=== PATIENT | female | born 1970 | race Caucasian/White ===

== ENCOUNTER 2021-10-17 15:51 | Emergency (ER) | payer OTHER, SELFPAY ==
[2021-10-17] MEDS ORDERED: ACETAMINOPHEN 500 MG TAB ONE (17:05)
--- NOTE | 2021-10-17 17:39 | RAD REPORT ---
EXAM DESCRIPTION: RAD - Elbow Right 3 View - 10/17/2021 5:28 pm CLINICAL HISTORY: PAIN COMPARISON: Wrist Right 3 View dated 10/17/2021 FINDINGS: No acute fracture or dislocation is seen.
--- NOTE | 2021-10-17 17:39 | RAD REPORT ---
EXAM DESCRIPTION: RAD - Wrist Right 3 View - 10/17/2021 5:27 pm CLINICAL HISTORY: PAIN Pain COMPARISON: No comparisons FINDINGS: No acute fracture or dislocation is seen.
--- NOTE | 2021-10-17 17:46 | ER ---
Nurse's Notes [facility] Name: Sally Knox Age: 51 yrs Sex: Female : 1970 Arrival Date: 10/17/2021 Time: 15:58 Bed DIS2 Private MD: Diagnosis: Sprain of other part of wrist and hand;Other sprain of right elbow Presentation: 10/17 16:03 Chief complaint: Patient states: tripped over cracks in this parking lot about 20 min jh5 ago and attempted to catch herself with right wrist. mild deformity at right wrist, pt complains of pain all the way up the arm. Pulses intact. Coronavirus screen: Vaccine status: Patient reports receiving the 2nd dose of the covid vaccine. Client denies travel out of the [place] in the last 14 days. Ebola Screen: Patient negative for fever greater than or equal to 101.5 degrees Fahrenheit, and additional compatible Ebola Virus Disease symptoms Patient denies exposure to infectious person. Patient denies travel to an Ebola-affected area in the 21 days before illness onset. Initial Sepsis Screen: Does the patient meet any 2 criteria? No. Patient's initial sepsis screen is negative. Does the patient have a suspected source of infection? No. Patient's initial sepsis screen is negative. Risk Assessment: Do you want to hurt yourself or someone else? Patient reports no desire to harm self or others. Onset of symptoms was October 17, 2021 at 16:08. 16:03 Method Of Arrival: Ambulatory [facility] 16:03 Acuity: TONIO 3 jh5 Triage Assessment: 16:09 General: Appears in no apparent distress. uncomfortable, slender, well groomed, well jh5 developed, well nourished, Behavior is calm, cooperative, appropriate for age. Pain: Complains of pain in right hand and right arm Pain radiates to right arm Pain currently is 10 out of 10 on a pain scale. Historical: - Allergies: 16:08 PENICILLINS; jh5 16:08 Sulfa (Sulfonamide Antibiotics); jh5 16:08 Codeine; jh5 16:08 Oxycodone; jh5 - Immunization history:: Adult Immunizations up to date. - Social history:: Smoking status: Patient/guardian denies using tobacco, but has a distant history of tobacco abuse. Screenin:10 Abuse screen: Denies threats or abuse. Denies injuries from another. Nutritional 5 screening: No deficits noted. Tuberculosis screening: No symptoms or risk factors identified. Fall Risk Fall in past 12 months (25 points). Assessment: 17:00 General: Appears in no apparent distress. comfortable, Behavior is calm, cooperative. ss Pain: Complains of pain in right wrist and right elbow Pain currently is 10 out of 10 on a pain scale. Quality of pain is described as aching, tender, Is continuous. Neuro: Level of Consciousness is awake, alert, obeys commands, Oriented to person, place, time, situation. Cardiovascular: Pulses are palpable in right radial artery and left radial artery. Respiratory: Airway is patent Respiratory effort is even, unlabored, Respiratory pattern is regular, symmetrical. GI: No signs and/or symptoms were reported involving the gastrointestinal system. : No signs and/or symptoms were reported regarding the genitourinary system. EENT: Oral mucosa is moist. Derm: Skin is intact, is healthy with good turgor, Skin is dry, Skin is pink, warm \T\ dry. normal. Musculoskeletal: Circulation, motion, and sensation intact. Range of motion: intact in all extremities, Swelling absent. 17:57 Reassessment: Patient appears in no apparent distress at this time. Patient and/or ss family updated on plan of care and expected duration. Pain level reassessed. Patient is alert, oriented x 3, equal unlabored respirations, skin warm/dry/pink. sling applied to R arm. Vital Signs: 16:03 BP 125 / 75; Pulse 80; Resp 16; Temp 97.6; Pulse Ox 98% ; Weight 58.06 kg; Height 5 ft. jh5 1 in. (154.94 cm); Pain 10/10; 16:03 Body Mass Index 24.19 (58.06 kg, 154.94 cm) 5 ED Course: 15:58 Patient arrived in ED. ds1 16:08 Triage completed. jh5 16:20 Torin Fraga PA is PHCP. jr8 16:20 Gary Alejo MD is Attending Physician. jr8 17:24 X-ray(s) taken. jh6 17:26 Wrist Right 3 View XRAY In Process Unspecified. EDMS 17:26 Elbow Right 3 View XRAY In Process Unspecified. EDMS 17:44 Hardik Soto MD is Referral Physician. jr8 17:46 Bee Otero, RN is Primary Nurse. ss 17:57 No provider procedures requiring assistance completed. Patient did not have IV access ss during this emergency room visit. Sling applied to right arm. 17:57 Patient has correct armband on for positive identification. Bed in low position. ss Administered Medications: 17:07 Drug: Tylenol 1000 mg Route: PO; 6 17:58 Follow up: Response: No adverse reaction ss Outcome: 17:45 Discharge ordered by . jr8 17:57 Discharged to home ambulatory, with family. ss 17:57 Condition: good 17:57 Discharge instructions given to patient, family, Instructed on discharge instructions, follow up and referral plans. Demonstrated understanding of instructions, follow-up care. 17:58 Patient left the ED. ss Signatures: Dispatcher [employer] EDNY Leah Magdaleno ds1 Bee Otero, RN RN Torin Fraga PA PA jr8 Amy Lerma, RN RN jh5 Briana Varner RN RN jh6
--- NOTE | 2021-10-17 17:46 | EDPHYS ---
Physician Documentation [facility] Name: Sally Knox Age: 51 yrs Sex: Female : 1970 Arrival Date: 10/17/2021 Time: 15:58 Bed DIS2 Private MD: ED Physician Gary Alejo HPI: 10/17 17:45 This 51 yrs old Female presents to ER via Ambulatory with complaints of Fall Injury. jr8 17:45 Onset: The symptoms/episode began/occurred acutely, today. Associated injuries: The jr8 patient sustained right arm. Severity of symptoms: At their worst the symptoms were mild, in the emergency department the symptoms are unchanged. The patient has not experienced similar symptoms in the past. The patient has not recently seen a physician. This is a 51-year-old female patient that presented to the emergency room after sustaining a mechanical accidental fall. Try to catch herself with her right arm and since then has had pain to the right wrist and right elbow region. Denies any other complaints at this time.. Historical: - Allergies: 16:08 PENICILLINS; jh5 16:08 Sulfa (Sulfonamide Antibiotics); jh5 16:08 Codeine; jh5 16:08 Oxycodone; jh5 - Immunization history:: Adult Immunizations up to date. - Social history:: Smoking status: Patient/guardian denies using tobacco, but has a distant history of tobacco abuse. ROS: 17:45 Constitutional: Negative for fever, chills, and weight loss, Neck: Negative for injury, jr8 pain, and swelling, Cardiovascular: Negative for chest pain, palpitations, and edema, Respiratory: Negative for shortness of breath, cough, wheezing, and pleuritic chest pain, Abdomen/GI: Negative for abdominal pain, nausea, vomiting, diarrhea, and constipation, Back: Negative for injury and pain, Skin: Negative for injury, rash, and discoloration, Neuro: Negative for headache, weakness, numbness, tingling, and seizure. 17:45 MS/extremity: Positive for pain, of the right arm. Exam: 17:45 Constitutional: This is a well developed, well nourished patient who is awake, alert, jr8 and in no acute distress. Neck: Trachea midline, no thyromegaly or masses palpated, and no cervical lymphadenopathy. Supple, full range of motion without nuchal rigidity, or vertebral point tenderness. No Meningismus. Cardiovascular: Regular rate and rhythm with a normal S1 and S2. No gallops, murmurs, or rubs. Normal PMI, no JVD. No pulse deficits. Respiratory: Lungs have equal breath sounds bilaterally, clear to auscultation and percussion. No rales, rhonchi or wheezes noted. No increased work of breathing, no retractions or nasal flaring. Abdomen/GI: Soft, non-tender, with normal bowel sounds. No distension or tympany. No guarding or rebound. No evidence of tenderness throughout. Back: No spinal tenderness. No costovertebral tenderness. Full range of motion. Skin: Warm, dry with normal turgor. Normal color with no rashes, no lesions, and no evidence of cellulitis. Neuro: Awake and alert, GCS 15, oriented to person, place, time, and situation. Cranial nerves II-XII grossly intact. Motor strength 5/5 in all extremities. Sensory grossly intact. 17:45 Musculoskeletal/extremity: Extremities: grossly normal except: noted in the right arm: Patient has full range of motion to affected extremity. Mild pain to the right lateral elbow and to the right lateral wrist. No swelling, bruising or other external signs of trauma noted. Patient has normal sensation to affected extremity with 2+ radial pulses. Remainder of all other extremities unremarkable.. Vital Signs: 16:03 BP 125 / 75; Pulse 80; Resp 16; Temp 97.6; Pulse Ox 98% ; Weight 58.06 kg; Height 5 ft. jh5 1 in. (154.94 cm); Pain 10/10; 16:03 Body Mass Index 24.19 (58.06 kg, 154.94 cm) 5 MDM: 16:20 Patient medically screened. jr8 17:44 Data reviewed: vital signs, nurses notes, radiologic studies, plain films. Data jr8 interpreted: Pulse oximetry: on room air is 98 %. Interpretation: normal. Counseling: I had a detailed discussion with the patient and/or guardian regarding: the historical points, exam findings, and any diagnostic results supporting the discharge/admit diagnosis, radiology results, the need for outpatient follow up, a orthopedic surgeon, to return to the emergency department if symptoms worsen or persist or if there are any questions or concerns that arise at home. 17:47 ED course: Discussed with patient if her pain was to persist after a week to go back to [facility] for reevaluation and reimaging. If acutely worse in between now and then to come back for further evaluation.. 10/17 16:14 Order name: Wrist Right 3 View XRAY; Complete Time: 17:43 pm1 10/17 16:14 Order name: Elbow Right 3 View XRAY; Complete Time: 17:43 pm1 10/17 16:14 Order name: Sling; Complete Time: 17:24 pm1 Administered Medications: 17:07 Drug: Tylenol 1000 mg Route: PO; [facility] 17:58 Follow up: Response: No adverse reaction ss Disposition: 18:33 Co-signature as Attending Physician, Gary Alejo MD I agree with the assessment and rn plan of care. Attestation: The patient's history, exam findings, diagnostics, and a summary of any interventions or procedures was reviewed in detail with Torin TORO. Disposition Summary: 10/17/21 17:45 Discharge Ordered Location: Home [facility] Problem: new jr8 Symptoms: have improved jr8 Condition: Stable jr8 Diagnosis - Sprain of other part of wrist and hand jr8 - Other sprain of right elbow jr8 Followup: jr8 - With: Hardik Soto MD - When: 7 - 10 days - Reason: If symptoms return, Recheck today's complaints, Re-evaluation by your physician Discharge Instructions: - Discharge Summary Sheet jr8 - Elbow Sprain jr8 Forms: - Medication Reconciliation Form jr8 - Thank You Letter jr8 - Antibiotic Education jr8 - Prescription Opioid Use jr8 Signatures: Dispatcher [employer] EDMS Gary Alejo MD MD rn Roszak, Josh, PA PA jr8 Ruben Wilder, [employer] pm1 Amy Lerma RN RN jh5 Briana Varner RN RN jh6 Bee Otero RN ss
[2021-10-17 18:13] VITALS: BP 125/75; TEMP 97.6; O2SAT 98
== END 2021-10-17 17:58 | disposition home or self-care (01) ==
LOC: ER 15:51
DX: S53.491A Other sprain of right elbow, initial encounter (principal); S63.8X1A Sprain of other part of right wrist and hand, initial encounter; W19.XXXA Unspecified fall, initial encounter; Z88.0 Allergy status to penicillin; Z88.2 Allergy status to sulfonamides; Z88.5 Allergy status to narcotic agent
CPT/HCPCS: 99283